=== PATIENT | male | born 1990 | race Caucasian/White ===

== ENCOUNTER 2022-10-11 09:17 | Emergency (ER) | payer OTHER, SELFPAY ==
[2022-10-11 09:29] VITALS: BP 123/81; PULSE 80; RESP 18; TEMP 36.2; O2SAT 100
--- NOTE | 2022-10-11 09:35 | ED.GENADULT ---
HPI - General Adult General Chief complaint: Upper Respiratory Infection Stated complaint: Sore Throat,Lt Eye Irritation,Light Headed Time Seen by Provider: 10/11/22 09:35 Source: patient Mode of arrival: ambulatory Limitations: no limitations History of Present Illness HPI narrative: 31-year-old male patient presents to the [facility] with complaints of left eye watering, itching, slight dizziness and congestion with drainage to the back of the throat that started yesterday. Patient states it has been much worse today. Patient states he was outside all day yesterday. Denies taking any antihistamines prior to arrival. Patient does have hearing loss in left ear does wear hearing aid. Related Data Allergies Allergy/AdvReac Type Severity Reaction Status Date / Time No Known Allergies Allergy Verified 10/11/22 09:27 Review of Systems Review of Systems: CONSTITUTIONAL: Denies fever, chills, or sweats. EYES: Denies visual changes, redness, or discharge. ENT: Denies rhinorrhea, Positive congestion, sore throat, positive decreased hearing to left ear. CARDIOVASCULAR: Denies chest pain, palpitations, or edema. RESPIRATORY: Denies cough or dyspnea. GASTROINTESTINAL: Denies abdominal pain, nausea, vomiting, or diarrhea. GENITOURINARY: Denies dysuria or hematuria. SKIN: Denies rash or itching. MUSCULOSKELETAL: Denies back pain, joint pain, or myalgia. NEUROLOGIC: positive dizziness, denies headache, numbness, or weakness. PSYCHIATRIC: Denies anxiety or depression. PMFSH Comments At the time of my signature I agree with nursing past medical history, surgical, social, and family history. There is no relevant family history pertinent to the presenting complaint. Exam Narrative: GENERAL: Well-appearing, well-nourished, and in no acute distress. HEAD: Normocephalic, atraumatic. EYES: PERRLA and EOMI. ENT: Nares with erythema and edema noted to the left ear, no rhinorrhea or epistaxis. Mucous membranes moist. posterior pharynx with no erythema, tonsillar enlargement, exudates or lesions present. Unable to assess the left side TM due to cerumen impaction. NECK: Supple. No lymphadenopathy CHEST: Clear to auscultation. No respiratory distress. HEART: Regular rate and rhythm. No murmur heard. Normal peripheral pulses. ABDOMEN: Soft, nontender, nondistended, normal active bowel sounds. EXTREMITIES: Normal range of motion. No edema. SKIN: Warm, dry, no rash. NEURO: No focal deficits. Alert and oriented x3. Course Course Level of Care: Express Care Visit Reevaluation(s) Reevaluation #1: Re-evaluated patient. The earwax from left ear was moved completely. Discussed with patient I do not see any infection to the left ear. Discussed with him I think that his signs symptoms are most likely related to allergies and therefore we will discharge him home with an antihistamine and an antihistamine eyedrops to help with symptoms of the left eye. Patient verbalized understanding denies any other questions or concerns at this time. Date: 10/11/22 Time: 10:08 Vital Signs Vital signs: Vital Signs Temperature 36.2 C L 10/11/22 09:29 Pulse Rate 80 10/11/22 09:29 Respiratory Rate 18 10/11/22 09:29 Blood Pressure 123/81 10/11/22 09:29 Pulse Oximetry 100 10/11/22 09:29 Oxygen Delivery Room Air 10/11/22 09:29 Temperature 36.2 C L 10/11/22 09:29 Pulse Rate 80 10/11/22 09:29 Respiratory Rate 18 10/11/22 09:29 Blood Pressure 123/81 10/11/22 09:29 Pulse Oximetry 100 10/11/22 09:29 Oxygen Delivery Room Air 10/11/22 09:29 Vital signs reviewed. The patient has been informed that they may have pre-hypertension or Hypertension based on a BP reading in the department. I recommend that the patient call the primary care provider listed on their discharge instructions or a physician of their choice this week to arrange follow up for further evaluation of possible pre-hypertension or Hypertension Pr
[2022-10-11 12:38] VITALS: BP 123/81; PULSE 80; RESP 18; TEMP 36.2; O2SAT 100
== END 2022-10-11 10:08 | disposition home or self-care (01) ==
PROVIDERS: Emergency Provider Nurse Practitioner Family
DX: J30.2 Other seasonal allergic rhinitis (principal); H61.22 Impacted cerumen, left ear; Z20.822 Contact with and (suspected) exposure to COVID-19
CPT/HCPCS: 69210; 87426; 99213; A9270; C9803; G0463

== ENCOUNTER 2022-11-13 11:06 | Emergency (ER) | payer OTHER, SELFPAY ==
[2022-11-13 11:16] VITALS: BP 148/93; PULSE 88; RESP 18; TEMP 36.5; O2SAT 100
--- NOTE | 2022-11-13 11:28 | ED.GENADULT ---
HPI - General Adult General Chief complaint: Unspecified Stated complaint: tightness in chest and lower back Time Seen by Provider: 11/13/22 11:17 Source: patient and RN notes reviewed Mode of arrival: ambulatory Limitations: no limitations History of Present Illness HPI narrative: Patient presents today complaining of shortness of breath, back pain, and chest tightness related to inhaling a chemical Phosgene 4 days ago. He was subsequently seen in the ER at [facility] in [place] and treated with a neb treatment and steroid injection and discharged with prescription for prednisone, which he has been taking. He was monitored in the ER for approx 6 hours during this visit. States the burning in his airway has subsided, but he continues to be short of breath and states he is very anxious. Related Data Home Medications Medication Instructions Recorded Confirmed prednisone 10 mg tablet 20 mg PO DAILY 11/13/22 11/13/22 Allergies Allergy/AdvReac Type Severity Reaction Status Date / Time No Known Allergies Allergy Verified 11/13/22 11:18 Review of Systems Review of Systems: CONSTITUTIONAL: Denies body aches, fever, chills, or sweats. EYES: Denies visual changes, redness, or discharge. ENT: Denies rhinorrhea, congestion, sore throat, or otalgia. CARDIOVASCULAR: Denies palpitations, or edema.+ chest discomfort RESPIRATORY: Denies cough.+ shortness of breath GASTROINTESTINAL: Denies abdominal pain, nausea, vomiting, or diarrhea. GENITOURINARY: Denies dysuria or hematuria. SKIN: Denies rash, itching, or wounds. MUSCULOSKELETAL: Denies joint pain, or myalgia.+ back pain NEUROLOGIC: Denies headache, numbness, tingling, or weakness. PSYCH: Denies depression or anxiety. PMFSH Comments At time of signature, I have reviewed and agree with nursing past medical, surgical, social and family history unless otherwise noted. Please see nursing chart for further information. There is no relevant family history pertinent to the presenting complaint Exam Narrative: GENERAL: Well-appearing, well-nourished, and in no acute distress. HEAD: Normocephalic, atraumatic. EYES: EOMI. No redness or drainage. Conjunctivae normal. ENT: Mucous membranes pink and moist. Nares clear. No rhinorrhea. Throat normal. Uvula midline. NECK: Normal AROM. Supple. No lymphadenopathy. CHEST: No respiratory distress. Clear to auscultation. HEART: Regular rate and rhythm. No murmur appreciated. Normal peripheral pulses. EXTREMITIES: Normal range of motion. No edema. SKIN: Warm, dry, no rash. Capillary refill normal. Normal skin turgor. NEURO: No focal deficits. Alert and oriented x3. Gait steady. PSYCH: Normal affect. No signs of depression or anxiety. Course Course Emergency Course: 1130- Called [place] poison control, discussed with [place]. Suggested chest xray rule out pulmonary edema as it can occur 3-4 days after aerosol exposure to specific chemical. Level of Care: Express Care Visit Vital Signs Vital signs: Vital Signs Temperature 97.7 F 11/13/22 11:16 Pulse Rate 88 11/13/22 11:16 Respiratory Rate 18 11/13/22 11:16 Blood Pressure 148/93 H 11/13/22 11:16 Pulse Oximetry 100 11/13/22 11:16 Oxygen Delivery Room Air 11/13/22 11:16 Temperature 97.7 F 11/13/22 11:16 Pulse Rate 88 11/13/22 11:16 Respiratory Rate 18 11/13/22 11:16 Blood Pressure 148/93 H 11/13/22 11:16 Pulse Oximetry 100 11/13/22 11:16 Oxygen Delivery Room Air 11/13/22 11:16 Reviewed Transfer Transfered to: [facility] Transportation: Other (private vehicle) Transfer rationale: Shortness of breath, chest discomfort, back pain, rule out pulmonary edema Accepting physician: Netta Medical Decision Making [facility] Narrative Medical decision making narrative: Based on recommendations by poison control, patient will be transferred to the ER for further evaluation of his symptoms. Patient agrees with plan. Differ
== END 2022-11-13 11:47 | disposition short-term general hospital (02) ==
PROVIDERS: Emergency Provider Nurse Practitioner
DX: T59.91XA Toxic effect of unspecified gases, fumes and vapors, accidental (unintentional), initial encounter (principal); R06.02 Shortness of breath; R07.9 Chest pain, unspecified; E78.00 Pure hypercholesterolemia, unspecified; Z86.16 Personal history of COVID-19
CPT/HCPCS: 99212; G0463

== ENCOUNTER 2023-01-08 08:11 | Emergency (ER) | payer OTHER, SELFPAY ==
--- NOTE | 2023-01-08 08:21 | ED.URI ---
HPI - URI/Sore Throat General Chief Complaint: Upper Respiratory Infection Stated Complaint: sorethroat Time Seen by Provider: 01/08/23 08:20 Source: patient Mode of arrival: ambulatory Limitations: no limitations History of Present Illness HPI Narrative: Rey is a 32-year-old male patient presenting to the clinic today with complaints of a sore throat, feeling feverish, headache, and slight nasal congestion times 2-3 days. He reports no known exposure to anyone with COVID, flu, or strep. MD elicited complaint: sore throat and nasal congestion Related Data Allergies Allergy/AdvReac Type Severity Reaction Status Date / Time No Known Allergies Allergy Verified 11/13/22 11:18 Review of Systems Review of Systems: Pertinent positives per HPI. Patient denies any rash, visual changes, dizziness, cough, shortness of breath, chest pain, palpitations, nausea, vomiting, diarrhea, constipation, abdominal pain, or any urinary issues. PMFSH Comments At the time of my signature, I reviewed and agree with the nursing past medical, surgical, social, and family history. There is no relevant family history pertinent to the patient complaint. Exam Narrative: General: Well-developed, well nourished, in no apparent distress Head: Normocephalic, atraumatic Eyes: Pupils equally round and reactive to light bilaterally, EOM intact, sclera and conjunctive clear, no discharge, lids normal Ears: TMs intact and clear, ear canals clear, no drainage, grossly hearing normal. Nose: Nares patent, clear discharge, no inflammation, no sinus tenderness. Mouth: Oral pharynx red with exudate to the left tonsil without lesions or masses, good dentition, MMM. Neck: Supple, trachea midline, mild enlargement of anterior cervical nodes, no thyroid masses or goiter palpable. Cardio: Regular rate and rhythm, s1 and s2 normal, no murmur appreciated. Resp: Clear to auscultation bilaterally, no rhonchi, rales, wheezing or rubs Course Course Emergency Course: Portions of this record may have been created with voice recognition software. Level of Care: Express Care Visit Vital Signs Vital signs: Vital signs reviewed MDM - URI/Sore Throat MDM Narrative Medical decision making narrative: At the time of visit patient is resting on the exam table. Strep screen, COVID, and influenza was obtained and was negative in the clinic Differential Diagnosis Differential diagnosis: Likely upper respiratory infection, otitis media, sinusitis, viral infection, bronchitis, influenza, pharyngitis and other (COVID) Discharge Plan Discharge Clinical Impression: Viral infection Upper respiratory infection Qualifiers: URI type: unspecified URI Qualified Code(s): J06.9 - Acute upper respiratory infection, unspecified Pharyngitis Qualifiers: Pharyngitis/tonsillitis etiology: unspecified etiology Qualified Code(s): J02.9 - Acute pharyngitis, unspecified Patient Disposition: Home, Self-Care Condition: Stable Instructions: Antibiotic Form, Pharyngitis (ED), Upper Respiratory Infection (ED), Viral Syndrome (ED) Additional Instructions: COVID, influenza, and strep test were all negative in the clinic today. We will send strep for culture if this comes back positive we will contact him place you on antibiotics at that time. Take prescription medications only as prescribed Increase fluids and stay well hydrated Tylenol/motrin for pain/fever Flonase and OTC antihistamines as directed Vicks vapor rub to open sinuses Sinus rinses for congestion Cepacol spray, cough drops, throat lozenges, warm tea with honey/lemon, gargle salt water to soothe throat BRAT diet for diarrhea Clear liquids x 24 hours then advance as tolerated for nausea/vomiting Go to the ED if you develop a worsening in your condition- high fever not controlled by Tylenol or Motrin, dehydration, weakness, lethargy, shortness of breath, or chest pain. Follow up with your PCP in 3
[2023-01-08 08:26] VITALS: BP 131/81; PULSE 87; RESP 16; TEMP 36.4; O2SAT 99
== END 2023-01-08 09:06 | disposition home or self-care (01) ==
PROVIDERS: Emergency Provider Nurse Practitioner Family
DX: B34.9 Viral infection, unspecified (principal); J06.9 Acute upper respiratory infection, unspecified; J02.9 Acute pharyngitis, unspecified; Z20.822 Contact with and (suspected) exposure to COVID-19
CPT/HCPCS: 87081; 87426; 87804; 87880; 99213; C9803; G0463

== ENCOUNTER 2023-05-23 08:36 | Emergency (ER) | payer OTHER, SELFPAY ==
[2023-05-23 08:41] VITALS: BP 133/83; PULSE 98; RESP 18; TEMP 36.3; O2SAT 99
--- NOTE | 2023-05-23 08:41 | ED.URI ---
HPI - URI/Sore Throat General Chief Complaint: Upper Respiratory Infection Stated Complaint: Sore Throat,Headache,Rt Side Pain Time Seen by Provider: 05/23/23 08:42 Source: patient, RN notes reviewed and old records reviewed Mode of arrival: ambulatory Limitations: no limitations History of Present Illness HPI Narrative: 32-year-old male presents to the [facility] with multiple complaints. Patient states since Wednesday he has had right flank pain, fevers, headache, sore throat. Has been taking Tylenol Motrin. Onset (ago): day(s) (2) Treatments prior to arrival: acetaminophen and ibuprofen Related Data Home Medications Medication Instructions Recorded Confirmed alirocumab 75 mg/mL subcutaneous 75 mg subcut Q14D 05/23/23 05/23/23 pen injector (Praluent Pen) Allergies Allergy/AdvReac Type Severity Reaction Status Date / Time hydrochlorothiazide AdvReac Intermediate Other Verified 05/23/23 09:11 Review of Systems Review of Systems: All systems reviewed & are unremarkable except as noted in HPI and below Constitutional: Constitutional: Reports as per HPI, Reports fever(s) and Reports headache(s) Eyes: Eyes: Reports no additional eye complaints ENT: Reports as per HPI and Reports sore throat Cardiovascular: Cardiovascular: Reports no additional cardiovascular complaints, Denies chest pain and Denies dyspnea Respiratory: Respiratory: Reports no additional respiratory complaints, Denies chest congestion, Denies cough and Denies dyspnea Gastrointestinal: Gastrointestinal: Reports no additional gastrointestinal complaints, Denies abdominal pain, Denies nausea and Denies vomiting Genitourinary: Genitourinary: Reports as per HPI, Denies dysuria and Reports flank pain (Right) Musculoskeletal: Musculoskeletal: Reports no additional musculoskeletal complaints Integumentary/Breasts: Skin/Breast: Reports system reviewed and no additional complaints, except as docu Neurologic: Reports system reviewed and no additional complaints, except as documented Psychiatric: Psychiatric: Reports no additional psychiatric complaints Allergic/Immunologic: Allergic/Immunologic: Reports no additional allergic/immunologic complaints PMFSH Past Medical History Medical History History of high blood pressure History of high cholesterol Comments At the time of my signature, I reviewed and agree with the nursing past medical, surgical, social, and family history. There is no relevant family history pertinent to the patient complaint. Exam Const: General: cooperative, healthy appearing, comfortable, no acute distress, well developed, alert and well nourished Nutritional Appearance: well nourished Orientation/consciousness: patient oriented x3 Limitations: no limitations HENMT: Head: normal to inspection Ears: hearing grossly normal bilaterally and external ears normal Face/Nose/Sinus: Normal external nose present, Normal nares present, Normal nasal mucous membranes and turbinates present, normal facial exam and face symmetric Face and sinus: normal facial exam and face symmetric Mouth: Yes Normal oral and palatal mucosa present, Yes lip normal and Yes moist mucous membranes Throat: posterior oropharynx normal, uvula midline, abnormal tonsil bilateral erythema, exudates and hypertrophy 2+, postnasal drainage and no uvular edema Eyes: General: appearance normal, both eyes and all related structures Alignment and Position: alignment normal Periorbital: periorbital findings normal Pupils: Equal, round and reactive pupils present EOM: EOMs intact bilaterally Neck: Neck: normal visual inspection, full ROM, no lymphadenopathy and no meningeal signs Chest: Chest palpation & inspection: normal inspection of the chest Resp: Effort & Inspection: normal respiratory effort and able to speak in complete sentences Auscultation: clear to auscultation bilaterally, no crackles, no rales, no rhonc
== END 2023-05-23 09:13 | disposition home or self-care (01) ==
PROVIDERS: Emergency Provider Nurse Practitioner
DX: J02.0 Streptococcal pharyngitis (principal); Z20.822 Contact with and (suspected) exposure to COVID-19; I10 Essential (primary) hypertension; E78.00 Pure hypercholesterolemia, unspecified
CPT/HCPCS: 87426; 87804; 87880; 99213; G0463